=== PATIENT | female | born 1940 | race Two or more races ===

== ENCOUNTER 2018-12-29 19:48 | Emergency (ER) | payer SELFPAY ==
[~2018-12-29] VITALS: Ht 149.9 cm; Wt 72.7 kg
--- NOTE | 2018-12-29 20:25 | NUR ---
PT TO ED FROM URGENT CARE FOR HIGH BP, WENT TO TODAY BECUASE SHE "DOESN'T FEEL RIGHT", DENIES SOB, DIZZINESS, CP - STATES HER CHEST WAS PINCHING EARLIER BUT NOT NOW, NO N/V/D, PROBLEMS URINATING. DAUGHTER AT BEDSIDE. PT PLACED ON MONITOR, EKG DONE. CALL LIGHT WITHIN REACH
[2018-12-29 20:51] LABS: BASOPHILS # (AUTO) 0.05 x10^3/uL (0-0.1); BASOPHILS % (AUTO) 1 % (0-1); EOSINOPHILS # (AUTO) 0.25 x10^3/uL (0-0.4); EOSINOPHILS % (AUTO) 4 % (1-7); LYMPHOCYTES # (AUTO) 1.79 x10^3/uL (1-3.4); LYMPHOCYTES % (AUTO) 25 % (22-44); MD NO; MEAN CORPUSCULAR HEMOGLOBIN 29.5 pg (27.0-34.8); MEAN CORPUSCULAR HGB CONC 34.2 g/dL (32.4-35.8); MEAN CORPUSCULAR VOLUME 86.4 fL (80-100); MEAN PLATELET VOLUME 8.4 fL (7.4-10.4); MONOCYTES # (AUTO) 0.53 x10^3/uL (0.2-0.8); MONOCYTES % (AUTO) 8 % (2-9); NEUTROPHILS # (AUTO) 4.42 x10^3/uL (1.8-6.8); NEUTROPHILS % (AUTO) 63 % (42-75); PLATELET COUNT 215 x10^3/uL (130-400); RED BLOOD COUNT 4.93 x10^6/uL (3.82-5.3); RED CELL DISTRIBUTION WIDTH 14.2 % (9.6-15.2)
[2018-12-29 21:04] LABS: ALANINE AMINOTRANSFERASE 108 U/L (12-78); ALBUMIN 3.4 g/dL (3.4-5.0); ANION GAP 6 mmol/L (5-15); CALCIUM 8.7 mg/dL (8.5-10.1); CHLORIDE 110 mmol/L (98-107); CREATININE 0.63 mg/dL (0.55-1.02)
--- NOTE | 2018-12-29 21:05 | NUR ---
PT RESTING IN GURNEY WITH DAUGHTER AT BEDSIDE, CLONIDINE GIVEN, CALL LIGHT WITHIN REACH. NO NEEDS AT THIS TIME. AWAITING LAB RESULTS
[2018-12-29 21:08] LABS: ALKALINE PHOSPHATASE 423 U/L (45-117); BILIRUBIN,TOTAL 0.3 mg/dL (0.2-1.0); TOTAL PROTEIN 7.7 g/dL (6.4-8.2); TROPONIN I < 0.015 ng/mL (0.000-0.045)
[2018-12-29 21:36] VITALS: BP 167/71
== END 2018-12-29 22:00 | disposition home or self-care (01) ==
LOC: ED 21:46
DX: I10 Essential (primary) hypertension (principal)
CPT/HCPCS: 36415; 71045; 80053; 84484; 85025; 93005; 99284